=== PATIENT | male | born 1990 | race Caucasian/White ===

== ENCOUNTER 2021-11-08 18:30 | Emergency (ER) | payer SELFPAY ==
[~2021-11-08] VITALS: Ht 170.2 cm; Wt 117.9 kg
[2021-11-08 18:31] VITALS: BP 144/76
[2021-11-08] MEDS ORDERED: IBUP-2213 PO (20:05)
--- NOTE | 2021-11-08 20:41 | NUR ---
Patient discharged with v/s stable. Written and verbal after care instructions given and explained BY KHARI DAVID. Patient alert, oriented and verbalized understanding of instructions. Ambulatory with steady gait. All questions addressed prior to discharge. ID band removed. Patient advised to follow up with PMD. Rx of MOTRIN given. Patient educated on indication of medication including possible reaction and side effects. Opportunity to ask questions provided and answered.
== END 2021-11-08 20:41 | disposition home or self-care (01) ==
LOC: MED 18:30
DX: R07.89 Other chest pain (principal); R20.2 Paresthesia of skin; R00.2 Palpitations; Z79.899 Other long term (current) drug therapy
CPT/HCPCS: 71045; 93005; 99283